=== PATIENT | male | born 1965 | race Caucasian/White ===

== ENCOUNTER 2018-11-16 19:14 | Emergency (ER) | payer OTHER ==
--- NOTE | 2018-11-16 19:34 | PDOC ---
History of Present Illness - General Chief Complaint: Injury Stated Complaint: FOREHEAD LACERATION Time Seen by Provider: 11/16/18 19:23 History Source: Patient Exam Limitations: No Limitations - History of Present Illness Initial Comments: 53 yo otherwise healthy M presenting with head laceration resulting from accidentally hitting his head on a kitchen cabinet. Denies LOC. Denies headache , lightheadedness/dizziness, numbness/tingling, n/v, abdominal pain. Not on AC. Does not know when last tetanus was. NKDA Past History - Past Medical History Allergies/Adverse Reactions: Allergies Allergy/AdvReac Type Severity Reaction Status Date / Time No Known Allergies Allergy Verified 11/16/18 19:15 Asthma: Yes COPD: No - Suicide/Smoking/Psychosocial Hx Smoking History: Never smoked Have you smoked in the past 12 months: No Information on smoking cessation initiated: No Hx Alcohol Use: No Review of Systems - Review of Systems Able to Perform ROS?: Yes Comments:: DENIES chest pain, sob Is the patient limited Romansh proficient: No *Physical Exam - Vital Signs Last Vital Signs Temp Pulse Resp BP Pulse Ox 98.2 F 72 18 122/87 97 11/16/18 19:14 11/16/18 19:14 11/16/18 19:14 11/16/18 19:14 11/16/18 19:14 - Physical Exam Comments: GEN: Well appearing, NAD, comfortable. AAOx3 HEENT: NC/AT, EOMI, PERRLA, CN II-XII intact. CV: S1/S2, RRR, no m/r/g LUNG: CTAB, no wheezes, crackles, rales, rhonchi. GI: soft, ndnt, +BS, no guarding, no rebound. No masses. Procedures - Laceration/Wound Repair Left Upper Face Wound Length: to 2.5 cm Wound Explored: no foreign body present, contaminated Wound's Depth, Shape: irregular Irrigated w/ Saline: Yes Betadine Prep: No Anesthesia: 1% Lidocaine Amount of Anesthetic (ccs): 2 Wound Debrided: minimal Wound Repaired With: Sutures Suture Size/Type: 6:0 Number of Sutures: 4 Sterile Dressing Applied: No (bacitracin covered with guaze and tape) Splint Applied: No Progress: 11/16/18 20:26 patient tolerated procedure well with minimal pain Medical Decision Making - Medical Decision Making 11/16/18 19:32 53 yo M w/ uncomplicated head laceration after head strike to cabinet w/o LOC. Exam demonstrated a 2cm laceration w/ minimal bleeding. Neurovascularly intact. - pt needs tetanus and laceration repair Patient recvd tetanus shot and 4 sutures placed to close lac without complication. Patient tolerated procedure well. Discharge home w/ PCP f/u. Return and care instructions given. *DC/Admit/Observation/Transfer Diagnosis at time of Disposition: Laceration - Discharge Dispostion Disposition: HOME Condition at time of disposition: Stable Decision to Admit order: No - Referrals Referrals: Darrell Fitzgerald MD [Primary Care Provider] - - Patient Instructions Printed Discharge Instructions: DI for Laceration Repair, DI for Suture Removal Additional Instructions: You had 4 sutures placed. Your sutures need to be removed in 1 week. Please come back to the Emergency Department on 11/23/18 for suture removal. Alternatively, you may go to your Primary Care Doctor for suture removal. See the attached paperwork regarding wound care. Avoid scrubbing the area. Please follow up with your primary care doctor within the next 2-4 days. You may use acetaminophen or motrin as labelled for pain. Return to the Emergency Department IMMEDIATELY if you experience any of the following: - changes in vision - worsening pain - continued bleeding - numbness or tingling - ANYTHING that concerns you - Post Discharge Activity
[2018-11-16] MEDS ORDERED: DIPHTH,PERTUSS(ACELL),TET 0.5 ML DISP.SYRIN IM ONE ×2 (19:36→20:07)
[2018-11-16 19:38] VITALS: BP 122/87; PULSE 72; TEMP 98.2; BMI 26.3
--- NOTE | 2018-11-16 23:37 | PDOC ---
Documentation entered by Joie Prado SCRIBE, acting as scribe for Annmarie Atkinson MD. Annmarie Atkinson MD: This documentation has been prepared by the Johan coffey Lincy, SCRIBE, under my direction and personally reviewed by me in its entirety. I confirm that the documentation accurately reflects all work , treatment, procedures, and medical decision making performed by me. Attending Attestation - Resident Resident Name: Micha Blake - ED Attending Attestation I have performed the following: I have examined & evaluated the patient, The case was reviewed & discussed with the resident, I agree w/resident's findings & plan, Exceptions are as noted - HPI HPI: 11/16/18 19:48 The patient is a 53-year-old male with no significant past medical history presents to the emergency department with a laceration to the left eyebrow. The patient states he went to stand up when he hit his left eyebrow on the kitchen cabinet. Denies LOC or vision changes. PAST MEDICAL HISTORY: no significant history PAST SURGICAL HISTORY: no significant history FAMILY HISTORY: no pertinent history SOCIAL HISTORY: Pt lives with family and is employed. MEDICATIONS: reviewed ALLERGIES: As per nursing notes - Physicial Exam PE: 11/16/18 19:48 GENERAL: The patient is awake, alert, and fully oriented, in no acute distress. HEAD: Normal with no signs of trauma. EYES: Pupils equal, round and reactive to light, extraocular movements intact, sclera anicteric, conjunctiva clear. EXTREMITIES: Normal range of motion, no edema. NEUROLOGICAL: Normal speech, normal gait. PSYCH: Normal mood, normal affect. SKIN: +2 cm irregular laceration to the left lateral eyebrow, no bony tenderness , not actively bleeding. Neurovascularly bleeding. Warm, Dry, normal turgor, no rashes or lesions noted. - Medical Decision Making 11/16/18 23:36 This is a 53-year-old male who comes in with a laceration to his left forehead. Patient was seen evaluated and laceration repaired by the emergency medicine resident. Patient discharged will follow-up with his primary care doctor.
== END 2018-11-16 20:47 | disposition home or self-care (01) ==
LOC: FER 19:14
PROC: 3E0234Z Introduction of Serum, Toxoid and Vaccine into Muscle, Percutaneous Approach (ICD-10-PCS; principal; 2018-11-16)
PROC: 0HQ1XZZ Repair Face Skin, External Approach (ICD-10-PCS; 2018-11-16)
DX: S01.81XA Laceration without foreign body of other part of head, initial encounter (principal); W22.03XA Walked into furniture, initial encounter; Y93.89 Activity, other specified; Y92.000 Kitchen of unspecified non-institutional (private) residence as the place of occurrence of the external cause
CPT/HCPCS: 90715; 99282-25

== ENCOUNTER 2018-11-24 14:10 | Emergency (ER) | payer OTHER ==
--- NOTE | 2018-11-24 14:32 | PDOC ---
*Physical Exam - Physical Exam Comments: 11/24/18 14:29 GENERAL: The patient is awake, alert, and fully oriented, in no acute distress. HEAD: Normal with no signs of trauma. EYES: Pupils equal, round and reactive to light, extraocular movements intact, sclera anicteric, conjunctiva clear. EXTREMITIES: Normal range of motion, no edema. NEUROLOGICAL: Normal speech, normal gait. PSYCH: Normal mood, normal affect. SKIN: Well-healed linear incisional scar over the left lateral eyebrow that is well approximated, hemostatic, and without evidence of swelling or redness. No tenderness. Intact sutures in place x4. Medical Decision Making - Medical Decision Making 11/24/18 14:30 53-year-old male sustained left forehead/eyebrow laceration on 11/16 status post suture repair here for scheduled suture removal, has no complaints whatsoever. Denies redness/pain/swelling/bleeding/f/c. Sutures removed x4 without difficult. Wound remained well approximated and healed. bacitractin applied wound care instructions reviewed, understands return criteria. *DC/Admit/Observation/Transfer Diagnosis at time of Disposition: Visit for suture removal - Discharge Dispostion Disposition: HOME Condition at time of disposition: Stable - Referrals - Patient Instructions Printed Discharge Instructions: DI for Suture Removal - Post Discharge Activity
[2018-11-24 14:34] VITALS: BP 134/77; PULSE 74; TEMP 98; BMI 24.9
== END 2018-11-24 14:36 | disposition home or self-care (01) ==
LOC: FER 14:10
DX: Z48.02 Encounter for removal of sutures (principal)
CPT/HCPCS: 99281-25